=== PATIENT | female | born 1960 | race African-American/Black ===

== ENCOUNTER → 2020-02-16 08:09 | Outpatient (CLI) | payer OTHER, BC ==
--- NOTE | 2020-02-18 16:55 | EC ---
PATIENT:ANGELICA RICHARD DATE OF SERVICE: 02/16/20 SEX: F MEDICAL RECORD: [id number] DATE OF : 62 LOCATION:D[facility] AGE OF PATIENT: 59 ADMISSION DATE: 02/16/20 REFERRING PHYSICIAN: INTERPRETING PHYSICIAN: YOLANDA PRINCE MD ECHOCARDIOGRAM REPORT ECHO CHARGES 4 ECHO COMPLETE Date: 02/16/20 CLINICAL DIAGNOSIS: HEART MURMUR HX OF HTN ECHOCARDIOGRAPHIC MEASUREMENTS (adult normal given) AC root (d.<3.7cm) 2.5 cm LV Septum d (<1.2 cm> 1.5 cm Valve Excursion 1.5 cm LV Septum (systole) 1.9 cm Left Atria (s.<4.0cm> 4.0 cm LVPW d(<1.2cm) 1.5 cm RV (d.<2.3cm) 3.6 cm LVPW (sytole) 2.1 cm LV diastole(<5.6CM) 4.3 cm MV E-F(>70mm/sec) cm LV systole 2.6 cm LVOT Diameter 1.8 cm MV exc.(>10mm) 1.8 cm Est.ejection fraction (50-75%) % DOPPLER: LVIT cm/sec A 84.0 cm/sec E 99.0 cm/sec LA cm/sec RVSP 55 mmHg LVOT 105 cm/sec AOP1/2T m/s Asc. Ao 153 cm/sec RVOT 77 cm/sec RA cm/sec PA 102 cm/sec AV Gradient Peak 9.35 mmHg AV Mean 4.69 mmHg AV Area 1.9 cm MV Gradient Peak 5.43 mmHg MV Mean 1.65 mmHg MV Area cm COMMENTS: Landing Support Specialist: 2 NAOMI KIMBROUGH Airplane And Engine Inspector: 3 Dr. Kennedy TAPE# PACS Pericardial Effusion N DATE OF SERVICE: Adequate 2D, color-flow imaging, spectral Doppler, and M-Mode LVH is present. LV internal dimension is normal. Wall motion is normal. EF is greater than or equal to 55%. Aortic valve is tricuspid. No evidence of stenosis by Doppler interrogation. Left atrium is normal at 4.0 cm. Mitral valve shows no prolapse. Mild MR. Right side is grossly normal. Mild plus TR. TRANSINT:[id number] Voice Confirmation ID: [id number] DOCUMENT ID: [id number] ECHOCARDIOGRAM REPORT [id number] ANGELICA RICHARD,YOLANDA Field MD at 1655 CC: [id number] DICTATION DATE: 02/17/20 0843 MEAT HOSTESS: 02/17/20 1213 DEP CLI 02/16/20 [id number] [place] [address]
== END | disposition home or self-care (01) ==
LOC: D.HCCECHO 08:09
PROVIDERS: ATTEND Internal Medicine Cardiovascular Disease
DX: R01.1 Cardiac murmur, unspecified (principal); I20.9 Angina pectoris, unspecified

== ENCOUNTER 2020-02-25 06:07 | Day surgery (SDC) | payer OTHER, BC ==
[~2020-02-25] VITALS: Ht 160 cm; Wt 112.5 kg
--- NOTE | ~2020-02-25 | HEMODYNAMI ---
PATIENT:ANGELICA RICHARD MEDICAL RECORD: [id number] : 62 LOCATION:[facility] ADMISSION DATE: 02/25/20 Generatedon:02/25/20209:53 Patient name: ANGELICA RICHARD Patient #: [id number] SSN: [id number] : 1960 Date of study: 02/25/2020 Page: Of Hemodynamic Procedure Report Patient Data Patient Demographics Procedure consent was obtained First Name: ANGELICA Gender: Female Last Name: HILARY : 1960 Patient #: [id number] Age: 59 year(s) Race: Black SSN: [id number] Additional ID: [id number] Contact details [address]: [address] [place] [address] State: [place] City: [place] Zip code: [address] Past Medical History Allergies Allergen Reaction Date Comments Reported Other allergy 02/25/2020 sulfa/sulfonamide antibiotics Admission Admission Data Admission Date: 02/25/2020 Admission Time: 6:07 Arrival Date: 02/25/2020 Arrival Time: 0:00 Height (in.): 62.99 BSA: 2.12 (m2) Height (cm.): 160 BMI: 44.14 (kg/m2) Weight (lbs.): 249.12 Weight (kg.): 113 Lab Results Lab Result Date: 02/25/2020 Lab Result Time: 0:00 Biochemistry Name Units Result Min Max BUN mg/dl 15 --(--*-)-- 7 18 Creatinine mg/dl 0.7 --(*---)-- 0.6 1.3 eGFR ml/min 90 --(*---)-- 90 120 NONAFRICAN CBC Name Units Result Min Max Hematocrit % 37.9 *-(----)-- 42 54 Hemoglobin g/dl 12.3 *-(----)-- 13.5 17.5 Procedure Procedure Types Cath Procedure Diagnostic Procedure LHC Coronaries only Sedation Charges Moderate Sedation up to 15 minutes Moderate Sedation up to 45 minutes Peripheral Cath Diagnostic Procedure Customer Advisor Specialist Peripheral Procedures AFRO (Diagnostic) Procedure Description Procedure Date Procedure Date: 02/25/2020 Procedure Start Time: 8:53 Procedure End Time: 9:52 Procedure Staff Name Function Javier Oneal MD Performing Physician Viri Garcia RT Monitor Sabina Fitzpatrick RN Nurse Laura Lewis RT Scrub Indication Palpitations Procedure Data Cath Procedure Fluoroscopy Diagnostic fluoroscopy Total fluoroscopy Time: time: 11.3 min 11.3 min Diagnostic fluoroscopy Total fluoroscopy dose: dose: 1029 mGy 1029 mGy Contrast Material Contrast Material Type Amount (ml) Isovue 300 106 Entry Location Entry Primary Successful Side Size Upsize Upsize Entry Closure Alicia ccessful Closure Location (Fr) 1 (Fr) 2 (Fr) Remarks Device Remarks Femoral Right 5 Fr Manual artery Compression Radial Right 6 Fr Mechanical artery Short Compression Estimated blood loss: 5 ml Diagnostic catheters Device Type Used For End Catheter Placement DIAGNOSTIC [place] 4.5 5Fr Procedure catheter ([id number]) DIAGNOSTIC AR MOD 5Fr Procedure Catheter ([id number]) MULTIPACK JL 4.0 5Fr Left Coronary catheter Angiography DIAGNOSTIC [place] 4.5 5Fr Left Coronary catheter (060196) Angiography MULTIPACK Pigtail 5 Fr LV Angiography catheter Procedure Complications No complications Procedure Medications Medication Administration Route Dosage Oxygen etCO2 Nasal cannula 2 l/min Lidocaine 2% added to field 20 Heparin Flush Bag added to field 2 bags (1000units/500ml NS) 0.9% NaCl I.V. 100 ml/hr Versed I.V. 1 mg Fentanyl I.V. 50 mcg Versed I.V. 1 mg Fentanyl I.V. 50 mcg Versed I.V. 1 mg Fentanyl I.V. 50 mcg Versed I.V. 1 mg Fentanyl I.V. 50 mcg Radial Cocktail I.A. 1 syringe (Verapamil 2mg/Nitro 400mcg/Heparin 1500units) Hemodynamics Rest BSA: 2.12 (m2) HGB: 12.3 (g/dl) O2 Consumption: Estimated: 197.24 (ml/min) O2 Co nsumption indexed: Estimated:93.04 (ml/min/m) Heart Rate: 64 (bpm) Snapshots Pre Cath Intra NCS Post Cath Vital Signs Time Heart Resp SPO2 etCO2 NIBP (mmHg) Rhythm Pain Sedation Rate (ipm) (%) (mmHg) Status Level (bpm) 8:43:48 69 14 97 43.6 169/95(129) NSR 0 (11) 10(A) , No pain 8:48:31 67 15 94 34.6 153/94(126) NSR 0 (11) 10(A) , No pain 8:53:05 73 14 96 30.8 160/98(135) NSR 0 (11) 10(A) , No pain 8:59:08 71 13 94 34.5 151/84(123) NSR 0 (11) 10(A) , No pain 9:03:44 83 13 93 39.8 150/86(130) NSR 0 (11) 9(A) , No pain 9:08:21 74 16 96 33 149/81(106) NSR 0 (11) 9(A) , No pain 9:12:53 74 17 94 12.7 132/95(114) NSR 0 (11) 9(A) , No pain 9:17:18 72 15 95 11.2 125/101(118) NSR 0 (11) 9(A) , No pain 9:21:42 67 18 97 32.3 122/83(93) NSR 0 (11) 9(A) , No pain 9:26:06 79 14 100 36 121/79(115) NSR 0 (11) 9(A) , No pain 9:30:38 75 13 98 30 141/58(107) NSR 0 (11) 9(A) , No pain 9:36:33 71 13 99 34.5 162/62(122) NSR 0 (11) 9(A) , No pain 9:41:32 71 15 100 34.6 Measuring NSR 0 (11) 9(A) , No pain 9:46:10 76 24 99 39.1 188/86(109) NSR 0 (11) 9(A) , No pain 9:50:10 100 40.6 No Cuff NSR 0 (11) 9(A) , No pain Medications Time Medication Route Dose Verified Delivered Reason Notes Effectiveness by by 8:19:54 Oxygen etCO2 2 l/min Javier Muhammad used for Nasal St Edenilson Fitzpatrick senior technical support engineer cannula 8:20:12 Lidocaine 2% added 20ml Javier Herrera for local to vial [facility] anesthetic field MD KENYON 8:20:18 Heparin Flush added 2 bags aJvier Herrera used for Bag to KimmyEdenilson Oneal procedure (1000units/500ml field MD KENYON NS) 8:20:26 0.9% NaCl I.V. 100 Javier Muhammad Per ml/hr St Edenilson Fitzpatrick RN physician 8:46:42 Versed I.V. 1 mg Javier Muhammad for sedation St Edenilson Fitzpatrick RN, MD 8:46:49 Fentanyl I.V. 50 mcg Javier Muhammad for sedation St Edenilson Fitzpatrick RN, MD 8:51:51 Versed I.V. 1 mg Javier Muhammad for sedation St Edenilson Fitzpatrick RN, MD 8:51:55 Fentanyl I.V. 50 mcg Javier Mendezie for sedation St Edenilson Fitzpatrick RN, MD 9:00:02 Fentanyl I.V. 50 mcg Javier Muhammad for sedation St Edenilson Fitzpatrick RN, MD 9:00:59 Versed I.V. 1 mg Javier Mendezie for sedation St Edenilson Fitzpatrick RN, MD 9:09:08 Versed I.V. 1 mg Javier Muhammad for sedation St Edenilson Fitzpatrick RN, MD 9:09:11 Fentanyl I.V. 50 mcg Javier Muhammad for sedation St Edenilson Fitzpatrick RN, MD 9:23:57 Radial Cocktail I.A. 1 Javier Herrera for (Verapamil syringe Kimmy Kimmy vasodilation 2mg/Nitro MD KENYON 400mcg/Heparin 1500units) Procedure Log Time Note 7:55:18 Indication : Palpitations 7:55:28 Arrival Date: 02/25/2020 12:00:00 AM 7:57:38 Procedure Status Elective Heart Cath (OP). 7:57:42 Time tracking: Regular hours (M-F 7:00 - 5:00) 7:59:04 Patient allergic to Other allergysulfa/sulfonamide antibiotics 7:59:17 Patient Height : 62.99 inches 7:59:23 Patient Weight : 249.12 lbs 8:00:18 Lab Result : eGFR NONAFRICAN 90 ml/min 8:00:18 Lab Result : Creatinine 0.7 mg/dl 8:00:18 Lab Result : BUN 15 mg/dl 8:00:18 Lab Result : Hematocrit 37.9 % 8:00:18 Lab Result : Hemoglobin 12.3 g/dl 8:01:25 Lab results completed and on chart. 8:01:28 Lab results completed and on chart. 8:01:42 Stress Test: yes; abnormal ANTERIOR 8:05:09 Risk of Mortality: 0.1 8:05:14 Risk of blood transfusion: 1.7 8:05:19 Risk of EUSEBIO: 0.6 8:05:47 Informed consent obtained and on chart 8:13:57 Viri Dominguezanita RT(R) (CV) sent for patient. Start room use. 8:19:54 Oxygen 2 l/min etCO2 Nasal cannula was administered by Sabina Fitzpatrick RN; used for procedure; Verbal order read back and verified. 8:20:12 Lidocaine 2% 20ml vial added to field was administered by Javier Oneal MD; for local anesthetic; Verbal order read back and verified. 8:20:18 Heparin Flush Bag (1000units/500ml NS) 2 bags added to field was administered by Javier Oneal MD; used for procedure; Verbal order read back and verified. 8:20:26 0.9% NaCl 100 ml/hr I.V. was administered by Sabina Fitzpatrick RN; Per physician; Verbal order read back and verified. 8:22:24 Plan of Care:Hemodynamics will remain stable., Cardiac rhythm will remain stable., Comfort level will be maintained., Respiratory function will remain adequate., Patient/ family verbilizes understanding of procedure., Procedure tolerated without complication., Recovers from procedure without complications.. 8:22:34 Patient received from Pre/Post Procedure Room to CCL 1 Alert and oriented. Tansferred to table in Supine position. 8:22:37 Warm blankets applied, and danyel hugger turned on for patient comfort. 8:22:38 Correct patient and procedure confirmed by team. 8:22:38 ECG and BP/O2 sat monitors applied to patient. 8:22:51 H&P Date Dictated: 02/25/2020 H&P Addendum completed by physician on day of procedure. (MUST COMPLETE FOR ALL OUTPATIENTS), New H&P dictated by physician.. 8:22:52 Pre-procedure instructions explained to patient. 8:22:53 Pre-op teaching completed and patient verbalized understanding. 8:22:56 Family in patients room. 8:22:59 Patient NPO since Midnight. 8:23:04 Is the patient allergic to Iodine/contrast media? No. 8:23:07 Was the patient premedicated? Yes 8:23:10 Is patient on blood thinner?No 8:42:14 Vital chart was started 8:43:01 Patient diabetic? Yes. 8:43:04 If diabetic: On Metformin? Yes 8:43:13 If on Metformin: Last Dose? 02/24/2020 8:43:16 ----Pre-sedation anethsthesia assessment.---- 8:43:49 Previous problem with sedation/anesthesia? No ? 8:43:59 Snore? Yes 8:44:02 Sleep apnea? No 8:44:06 Deviated septum? No 8:44:10 Opens mouth fully? Yes 8:44:12 Sticks out tongue? Yes 8:44:17 Airway obstruction? No ? 8:44:21 Dentures? No ? 8:44:29 Pre procedure: right dorsailis pedis pulse 2+ Normal; easily identifiable; not easily obliterated 8:44:51 Patient pain scale 6/10 KNEE PAIN. 8:45:05 IV patent on arrival in left antecubital with 0.9% NaCl at KVO. 8:45:11 Right groin area was prepped with chlora-prep and draped in sterile fashion 8:45:16 Alarms reviewed by R. N. 8:45:17 Sharps counted by scrub and verified by R.N. 8:45:19 Physician arrived 8:45:20 --------ALL STOP TIME OUT------ 8:45:21 Final Timeout: patient, procedure, and site verified with staff and physician. All members of the team are in agreement. 8:45:23 Right groin site verified by team. 8:45:29 Fire Safety Assessment: A--An alcohol-based skin anteseptic being used preoperatively., C--Open oxygen or nitrous oxide is being used., D--An ESU, laser, or fiber-optic light is being used. 8:45:35 Physical assessment completed. ASA score P 2 - A patient with mild systemic disease as per Javier Oneal MD. 8:45:42 1) 90+ Normal kidney functon but urine findings or structural abnormalities or genetic trait point to kidney disease. 8:45:47 Maximum allowable contrast dose (3.7 X eGFR X 0.75)250 ml. 8:45:54 Sedation plan: IV Moderate Sedation Medication:Versed, Fentanyl 8:45:59 Use device set Femoral Dx 8:46:02 ACIST Syringe (09381) opened to sterile field. 8:46:02 Bag Decanter (2001S) opened to sterile field. 8:46:03 Medline Cath Pack ([id number]) opened to sterile field. 8:46:04 ACIST Hand Control (18265) opened to sterile field. 8:46:05 ACIST Manifold (60890) opened to sterile field. 8:46:06 DIAGNOSTIC Multipack 5Fr catheter set ([id number]) opened to sterile field. 8:46:07 Tegaderm 4 x 4 (1626W) opened to sterile field. 8:46:08 SHEATH 5FR [place] (XSV754) opened to sterile field. 8:46:09 EMERALD Guide Wire (871-990) opened to sterile field. 8:46:42 Versed 1 mg I.V. was administered by Sabina Fitzpatrick RN; for sedation; Verbal order read back and verified. 8:46:49 Fentanyl 50 mcg I.V. was administered by Sabina Ftizpatrick RN; for sedation; Verbal order read back and verified. 8:49:54 Zero performed for pressure channel P1 8:50:06 Baseline sample Acquired. 8:50:11 Rhythm: sinus rhythm 8:50:14 Baseline sample Acquired. 8:50:16 Full Disclosure recording started 8:51:51 Versed 1 mg I.V. was administered by Sabina Fitzpatrick RN; for sedation; Verbal order read back and verified. 8:51:55 Fentanyl 50 mcg I.V. was administered by Sabina Fitzpatrick RN; for sedation; Verbal order read back and verified. 8:53:26 Procedure started. 8:53:38 Local anesthetic to right femoral artery with Lidocaine 2% by Javier Oneal MD.INITIAL ACCESS ONLY 8:53:54 A 5 Fr sheath was inserted into the Right Femoral artery 9:00:02 Fentanyl 50 mcg I.V. was administered by Sabina Fitzpatrick RN; for sedation; Verbal order read back and verified. 9:00:16 GLIDE WIRE ADVANTAGE 260cm (SX0466) opened to sterile field. 9:00:59 Versed 1 mg I.V. was administered by Sabina Fitzpatrick RN; for sedation; Verbal order read back and verified. 9:01:23 GLIDEWIRE 260 wire advanced. 9:06:17 SHEATH 5FR [place] (HEC913) opened to sterile field. 9:07:10 THE LEFT FEMERAL ARTERY IS PREPPED AND DRAPPED IN A STERILE FASHION FOR ACCESS. 9:07:19 Local anesthetic to left femerol artery with Lidocaine 2% by Javier Oneal MD.ADDITIONAL ACCESS 9:09:08 Versed 1 mg I.V. was administered by Sabina Fitzpatrick RN; for sedation; Verbal order read back and verified. 9:09:11 Fentanyl 50 mcg I.V. was administered by Sabina Fitzpatrick RN; for sedation; Verbal order read back and verified. 9:23:47 MBrace Wrist Support ([id number]) opened to sterile field. 9:23:49 SHEATH 6FR RAIN (7218120) opened to sterile field. 9:23:57 Radial Cocktail (Verapamil 2mg/Nitro 400mcg/Heparin 1500units) 1 syringe I.A. was administered by Javier Oneal MD; for vasodilation; Verbal order read back and verified. 9:24:51 Local anesthetic to right radial artery with Lidocaine 2% by Javier Oneal MD.ADDITIONAL ACCESS 9:25:35 A 6 Fr Short sheath was inserted into the Right Radial artery 9:26:33 A DIAGNOSTIC [place] 4.5 5Fr catheter (823736) was advanced over the wire and used for Procedure. 9:27:54 Catheter removed. 9:28:41 A DIAGNOSTIC [place] MOD 5Fr Catheter ([id number]) was advanced over the wire and used for Procedure. 9:29:40 RCA angiography performed. 9:29:44 Injector settings: Ml/sec: 3, Volume: 6, 9:30:46 A MULTIPACK JL 4.0 5Fr catheter was advanced over the wire and used for Left Coronary Angiography. 9:32:24 Catheter removed. 9:33:22 GUIDE 5FR EBU 3.5 catheter ([id number]) opened to sterile field. 9:34:34 LCA angiography performed. 9:35:03 Injector settings: Ml/sec: 3, Volume: 6, 9:35:10 Catheter removed. 9:35:22 A DIAGNOSTIC [place] 4.5 5Fr catheter (145103) was advanced over the wire and used for Left Coronary Angiography. 9:37:59 LCA angiography performed. 9:38:05 Injector settings: Ml/sec: 3, Volume: 6, 9:39:17 Catheter removed. 9:39:25 A MULTIPACK Pigtail 5 Fr catheter was advanced over the wire and used for LV Angiography. 9:43:37 Right leg runoff performed@10 FOR 20. 9:43:40 Left leg runoff performed@10 FOR 20. 9:44:23 Catheter removed. 9:46:21 ZEPHYR REGULAR TR BAND (951016) opened to sterile field. 9:46:46 Sheath removed intact; hemostasis achieved with Manual Compression to the Right Femoral artery. 9:47:01 Sheath removed intact; hemostasis achieved with Mechanical Compression to the Right Radial artery. 9:47:04 Procedure ended.(Physican Out) 9:47:29 Fluoroscopy time 11.30 minutes. 9:47:34 Flurop Dose total: 1029 9:47:34 Fluoroscopy dose: 1029 mGy 9:47:43 Dose Area Product 43405 mGy/cm. 9:47:51 Contrast amount:Isovue 300 106ml. 9:47:55 Maximum allowable dose exceeded? No. 9:47:57 Sharps counted by scrub and verified by R.N. 9:48:01 [place] band inflated with 10cc of air. 9:48:10 Post-op/insertion site Right Femoral artery dressed using a 4 x 4 and Tegaderm. 9:48:22 Post-procedure physical assessment completed. ASA score P 2 - A patient with mild systemic disease as per Javier Oneal MD. 9:48:26 Post procedure rhythm: unchanged. 9:48:30 Estimated blood loss: 5 ml 9:48:32 Post procedure instruction explained to patient.Patient verbalizes understanding. 9:48:33 Patient needs reinforcement of post procedure teaching. 9:49:29 Procedure type changed to Cath procedure, Diagnostic procedure, LHC, Coronaries only, Sedation Charges, Moderate Sedation up to 15 minutes, Moderate Sedation up to 45 minutes, Peripheral Cath Diagnostic Procedure, Customer Advisor Specialist Peripheral Procedures, AFRO (Diagnostic) 9:49:31 Procedure and supply charges have been captured, reviewed, submitted and are correct. 9:52:12 Procedure Complication : No complications 9:52:15 Vital chart was stopped 9:52:18 LHC Findings: mild to moderate CAD (<70%) 9:52:22 See physician's report for complete and final results. 9:52:24 Report given to Pre/Post Procedure Room. 9:52:29 Patient transfered to Pre/Post Procedure Room with Stretcher. 9:52:32 Procedure ended. 9:52:32 Full Disclosure recording stopped 9:52:35 End room use (Document Last) Device Usage Item Name Manufacture Quantity Catalog Hospital Part Current Minima l Lot# / Number Charge Number Stock Stock Serial# Code ACIST Acist 1 84639 [id number] 349444 522774 20 Syringe Medical (07864) Systems Inc Bag Microtek 1 571332 42645 006759 5 Decanter Medical Inc. () Medline Medline 1 [id number] 923263 85248 002629 5 Cath Pack ([id number]) ACIST Hand Acist 1 44792 670794 717679 180343 5 Control Medical (79622) Systems Inc ACIST Acist 1 27579 221711 348766 721962 5 Manifold Medical (06531) Systems Inc DIAGNOSTIC Cardinal 1 [id number] 797411 97321 289279 30 Multipack Health 5Fr catheter set (LR1588) Tegaderm 4 3M 1 1626W 365711 299146 385719 5 x 4 (1626W) SHEATH 5FR Terumo 2 SQC128 180015 952510 759341 5 [place] (WAW520) EMERALD Cardinal 1 502-455 356851 988683 777629 5 Guide Wire Health (502-455) GLIDE WIRE Terumo 1 FM4258 059916 792874 5 ADVANTAGE 260cm (PP1579) MBrace Advanced 1 140-0250-00 254748 39884 221827 5 Wrist Vascular Support Dynamics (911998754) SHEATH 6FR Cardinal 1 6553331 885679 9482510 617553 5 [facility] Health (1703065) DIAGNOSTIC Terumo 1 405012 338556 432427 175114 5 [place] 4.5 5Fr catheter (319379) DIAGNOSTIC Cardinal 1 [id number] 345396 038417 701907 15 [place] MOD 5Fr Health Catheter (281026G) MULTIPACK Cardinal 1 661181 5 JL 4.0 5Fr Health catheter GUIDE 5FR Medtronic 1 [id number] 987118 152361 850243 1 EBU 3.5 catheter ([id number]) MULTIPACK Cardinal 1 897183 5 Pigtail 5 Health Fr catheter ZEPHYR Cardinal 1 530951 886269 6288904 645503 5 REGULAR TR Health BAND (791023) Signature Audit Keldron Stage Time Signature Unsigned Intra-Procedure 02/25/2020 Viri 9:52:57 AM Jose RT(R) (CV) Intra-Procedure 02/25/2020 Sabina Fitzpatrick RN 9:53:24 AM Intra-Procedure 02/25/2020 Javier Sanchez 9:53:53 AM Edenilson KENYON [facility] [address] [place] [address]
[2020-02-25] MEDS ORDERED: ROCALTROL0.5 MCG PO (06:46)
[2020-02-25] MEDS ORDERED: NORVASC5 MG PO (06:47)
[2020-02-25] MEDS ORDERED: METFORMIN HCL500 M1 PO (06:48)
[2020-02-25] MEDS ORDERED: MOBIC7.5 MG PO (06:48)
[2020-02-25] MEDS ORDERED: HCTZ25 MG PO (06:48)
[2020-02-25] MEDS ORDERED: OMEPRAZOLE20 M1 PO (06:49)
[2020-02-25] MEDS ORDERED: METOPROLOL TART50 MG PO (06:49)
[2020-02-25] MEDS ORDERED: ZYRTEC10 MG PO (06:50)
[2020-02-25] MEDS ORDERED: MULTI-DAY VITAM1 TAB PO (06:51)
[2020-02-25 07:19] LABS: BASOPHILS 0.8 % (0-2); EOSINOPHILS 1.7 % (0-7); HEMATOCRIT 37.9 % (36.0-48.0); HEMOGLOBIN 12.3 g/dL (12-16); LYMPHOCYTES 49.8 % (15-50); MCH 31.1 pg (26.0-34.0); MCHC 32.5 g/dL (31.0-37.0); MCV 95.9 fL (80.0-100.0); MEAN PLATELET VOLUME 10.4 fL (7.4-10.4); MONOCYTES 4.9 % (2-11); NEUTROPHILS 42.8 % (40-80); PLATELET COUNT 313 10x3/uL (130-400); RBC 3.95 10x6/uL (4.00-5.40); RDW 13.8 % (11.5-14.5); WBC 6.5 10x3/uL (4.8-10.8)
[2020-02-25 07:20] VITALS: BP 143/70; Ht 160 cm; Wt 112.5 kg
[2020-02-25 07:30] LABS: ALT (SGPT) 30 U/L (10-68); CALC OSMOLALITY 279 mosm/kg (275-300); CALCIUM 8.8 mg/dL (8.5-10.1); CARBON DIOXIDE 29.3 mmol/L (21.0-32.0); CHLORIDE - SERUM 104 mmol/L (98-107); CHOL - HDL RATIO 3.2 ratio (2.3-4.1); CHOLESTEROL, TOTAL 147 mg/dL (0-200); CREATININE - SERUM 0.7 mg/dL (0.6-1.3); GLUCOSE 117 mg/dL (74-106); HDL CHOLESTEROL 46 mg/dL (32-96); LDL CHOLESTEROL 77 mg/dL (0-100); LDL-HDL RATIO 1.7 ratio (1.5-3.5); POTASSIUM - SERUM 3.6 mmol/L (3.5-5.1); SODIUM 139 mmol/L (136-145); TRIGLYCERIDE 122 mg/dL (30-200); UREA NITROGEN 15 mg/dL (7-18); eGFR NON AFRICAN AMERICAN > 90 mL/min (90-120)
--- NOTE | 2020-02-25 10:05 | NUR ---
PT REC'D TO ROOM 8 VIA STRETCHER FROM TUMBLERS SUPERVISOR. MONITORS ESTAB. AT BS. SEE ROUTE RIDER SUPERVISOR ASSESSMENT. ALARMS ON AND C/L IN REACH.
--- NOTE | 2020-02-25 10:20 | NUR ---
R GROIN SITE SOFT, C/D/I. R WRIST Z BAND SITE C/D/I - NO S/S BLEEDING OR SWELLING AT EITHER SITE. PULSES PALP. PT ASSISTED ON BS WITH NURSES X 2 - PT VOIDED 300ML CLEAR, YELLOW URINE. PER-CARE PROVIDED. PT DENIES PAIN OR OTHER NEEDS. AT BS. C/L IN REACH.
--- NOTE | 2020-02-25 11:05 | NUR ---
R WRIST Z BAND SITE AND R GROIN SITE - BOTH C/D/I, NO S/S BLEEDING OR HEMATOMA. HOB ELEVATED GRADUALLY. COLA AND SANDWICH TRAY PROVIDED. 2 CC AIR REMOVED FROM Z BAND - WILL CONT CLOSE MONITORING.
--- NOTE | 2020-02-25 11:15 | NUR ---
TOTAL 5CC AIR REMOVED FROM Z BAND, NO S/S BLEEDING. R GROIN SITE SOFT, DSG C/D/I. NO S/S BLEEDING OR HEMATOMA. PULSES PALP. PT TOLERATING FOOD AND DRINK. VSS. C/L IN REACH.
--- NOTE | 2020-02-25 11:29 | NUR ---
PT VOIDED 400CC ON BEDPAN, KRISTA-CARE PROVIDED. R GROIN SITE SOFT, NO S/S BLEEING OR HEMATOMA. TOTAL 7CC AIR REMOVED FROM Z BAND, NO S/S BLEEDING OR SWELLING, PULSES ALL PALP. C/L IN REACH.
--- NOTE | 2020-02-25 11:40 | NUR ---
ALL AIR REMOVED FROM Z BAND, NO S/S BLEEDING OR SWELLING. R GROIN SITE SOFT, C/D/I. VSS. WILL CONT CLOSE MONITORING.
--- NOTE | 2020-02-25 12:05 | NUR ---
Z BAND OFF, DSG/ARMBOARD APPLIED, NO S/S BLEEDING OR HEMATOMA. R GROIN SITE SOFT, C/D/I. PIV D/C'D INTACT, DSG APPLIED AND PT ALLOWED UP TO GET DRESSED AND GO TO BR INDEPENDENTLY.
--- NOTE | 2020-02-25 12:10 | NUR ---
ALL DISCHARGE INSTRUCTIONS REVIEWED WITH PT AND HER , INCLUDING RESTRICTIONS, MEDS AND F/U APPT. BOTH VERBALIZE UNDERSTANDING.
--- NOTE | 2020-02-25 12:20 | NUR ---
PT D/C'D TO PRIVATE VEHICLE WITH ALL PAPERWORK AND BELONGINGS.
--- NOTE | 2020-02-27 08:55 | OP ---
PATIENT NAME: ANGELICA RICHARD MEDICAL RECORD: [id number] :62 LOCATION:D.CAT ADMISSION DATE: SURGEON: YOLANDA PRINCE MD DATE OF OPERATION: 02/25/2020 PROCEDURE: Left heart catheterization, selective coronary angiography, right radial approach. CATHETERS: A 5-Polish sheath, 5/4 left and right Juanpablo, 5/4 pig as well as radial sheath and Benld catheter as well as AR plus AFRO. The procedure was well tolerated. The patient returned to the van. Sheath removed. TR band was placed. FINDINGS: Left ventriculography not performed due to inability to cross the valve. Normal LV function via echocardiograph study. CORONARY ANATOMY: LEFT MAIN: Left main is free of disease. LAD: Free of disease in the diagonal system. CIRCUMFLEX: Free of disease in the marginal system. RIGHT CORONARY ARTERY: Dominant artery, gives rise to PDA, free of disease. IMPRESSION: Normal LV function via echo, normal coronary anatomy. From the radial approach, the catheter was placed down to the distal level of the aorta and aortofemoral runoff was performed due to inability to gain arterial access distally. Abdominal aorta shows no evidence of dissection, no evidence of aneurysm. RIGHT SYSTEM: Right iliac system shows minimal wall disease, otherwise widely patent. Right superficial system, both common, deep, superficial show minimal wall disease with good 2-vessel runoff. LEFT ILIAC SYSTEM: Minimal wall disease, otherwise no obstructive stenosis. Left femoral system, common, superficial, and deep, again no evidence of stenosis with good 2-vessel runoff. NTS:[id number] Voice Confirmation ID: [id number] DOCUMENT ID: [id number] YOLANDA PRINCE MD at 0855 CC: [id number] DICTATION DATE: 02/25/20 0949 PROCESS MAINTENANCE TECHNICIAN: 02/25/20 1837 [facility] 02/25/20 [facility] [address] [place] [address]
== END 2020-02-25 12:20 | disposition home or self-care (01) ==
LOC: D.CATH 06:07
PROVIDERS: ATTEND Internal Medicine Interventional Cardiology
DX: I10 Essential (primary) hypertension (principal); R00.2 Palpitations; R06.09 Other forms of dyspnea; I34.0 Nonrheumatic mitral (valve) insufficiency